=== PATIENT | female | born 1975 | race Two or more races ===

== ENCOUNTER 2017-10-27 10:44 | Emergency (ER) | payer OTHER ==
[~2017-10-27] VITALS: Ht 170.2 cm; Wt 63.5 kg
[2017-10-27] MEDS ORDERED: TUSSI PRES-B L120 M1 PO (13:55)
[2017-10-27] MEDS ORDERED: KETO10TA2 PO (13:55)
[2017-10-27] MEDS ORDERED: NORFLEX100MG PO (13:55)
[2017-10-27] MEDS ORDERED: ZITHROMAX TRI-500 MG PO (13:55)
== END 2017-10-27 14:02 | disposition home or self-care (01) ==
LOC: ER 10:44
DX: B34.9 Viral infection, unspecified (principal)

== ENCOUNTER 2019-10-21 07:59 | Emergency (ER) | payer OTHER ==
[~2019-10-21] VITALS: Ht 170.2 cm; Wt 68.0 kg
[~2019-10-21 07:59] MED LIST: KETO10TA2 PO; NORFLEX100MG PO; TUSSI PRES-B L120 M1 PO; ZITHROMAX TRI-500 MG PO
== END 2019-10-21 19:59 | disposition home or self-care (01) ==
LOC: ER 07:59
DX: M54.16 Radiculopathy, lumbar region (principal); M54.5 Low back pain
CPT/HCPCS: 72148